=== PATIENT | female | born 1970 | race Caucasian/White ===

== ENCOUNTER 2019-02-04 09:16 | Inpatient (IN) | payer OTHER ==
[~2019-02-04] VITALS: Ht 175.3 cm; Wt 136.1 kg
[~2019-02-04 09:16] MED LIST: ADVIL200 MG PO; AMARYL4 MG PO; AMOXICILLIN500 MG PO; CALCIUM 500 +1 EAC1 PO; CELEXA20 MG PO; HYDROCODON-ACE1 EAC3 PO; LISINOPRIL20 MG PO; MAGNESIUM250 MG PO; PRILOSEC20 MG PO; VITAMIN D1000 UNIT PO; VITAMIN E; ZYRTEC10 MG PO
--- NOTE | 2019-02-07 14:09 | NUR ---
PATIENT HERE TODAY FOR PREADMISSION APPOINTMENT. SHE IS SCHEDULED TO HAVE A LEFT TOTAL KNEE ARTHROPLASTY DONE ON 02/15/19. SHE IS SCHEDULED TO ATTEND THE JOINT BOOT CAMP ON 02/10/19 AND WOULD LIKE PHYSICAL THERAPY SET UP WITH [facility] AFTER SURGERY. THE PATIENT REPORTS HAVING 1 STEP INTO THE HOME AND NO STEPS INSIDE THE HOME. THERE IS A TUB/SHOWER WITH NO HAND HELD SHOWER HEAD. SHE DOES HAVE A SHOWER BENCH. SHE WOULD LIKE CASE MANAGEMENT TO OBTAIN A WALKER FOR HER WHILE SHE IS HERE IN THE HOSPITAL. ONE OF HER DAUGHTERS WILL BE HERE TO TRANSPORT HER HOME AND SHE HAS FAMILY TO HELP HER ONCE SHE IS HOME. THIS INFORMATION WILL BE SENT TO DR NOBLE OFFICE AND CASE MANAGEMENT FOR FURTHER FOLLOW UP.
[2019-02-15] MEDS ORDERED: VITAMIN E400 UNI2 PO (08:34)
[2019-02-15] MEDS ORDERED: DAILY MULTIPLE1 EACH PO (08:35)
[2019-02-15] MEDS ORDERED: VITAMIN C100 MG PO (08:35)
[2019-02-15] MEDS ORDERED: CINNAMON500 MG PO (08:35)
[2019-02-15] MEDS ORDERED: BASAGLAR K100 UNIT/1 (08:36)
[2019-02-15] MEDS ORDERED: NOVOLOG100 UNIT/2 SUB-Q (08:37)
--- NOTE | 2019-02-15 13:41 | NUR ---
02/15/19 1341 [place] 1335 PT ARRIVED TO PACU, DRWOSY AND DENIES PAIN AND NAUSEA. PT REPORTS SHE IS UNABLE TO MOVE HER LEGS, PT EDUCATION GIVEN ON SPINAL. PLAN OF CARE DISCUSSED.
--- NOTE | 2019-02-15 14:30 | NUR ---
New admit here from surgery. Pt awake, alert and oriented x3. Pt on 2L oxygen, sat level 93%, resp even and non labored. Vital signs are stable. Left knee dressing is CDI. Ice over incision. Spinal resolving, numbness and tingling to lower ext per pt report. Bed alarm intact, knee lock on. Pt denies needs at this time. Pt due to void. Personal supplies and call light within reach. Family at bedside. CPOX intact.
--- NOTE | 2019-02-15 15:11 | NUR ---
Pt awake, alert and oriented x4. Pt's spinal resolving, she reports feeling from bilat knees to toes, cms intact. Ice intact over incision site. Dressing to left knee is CDI. Bed alarm intact. vs stable. Pt's dinner ordered at this time. Personal supplies and call light within reach. No needs. Family at bedside.
--- NOTE | 2019-02-15 16:27 | NUR ---
Pt awake, alert and oriented x3. Pt reports spinal resolved, cms intact. left knee dressing cdi. Ice over incision. Pt reports slight pain in left knee but declines pain medication at this moment. Pt remains on 2L oxygen, sat level 96%. CPOX intact. Personal supplies and call light within reach. No needs at thsi time.
--- NOTE | 2019-02-15 17:30 | NUR ---
REPORT RECEIVED FROM JESSICA ROJAS, THIS RN ASSUMING CARE OF PT. PT SITTING UP IN BED. PT REPORTS 4/10 PAIN AND REQUESTS PAIN MEDICATION (SEE MAR FOR MEDICATION GIVEN). PT REQUESTS NEW PIV. NEW PIV ATTEMPTED WITH FAILED ATTEMPT. PT TOLERATING PO FLUIDS. 2PA, FWW UP TO COMODE. PT VOIDS 200ML, CONTROLED VOID. PIV SALINE LOCKED. PT REPORTS ITCHING AND NAUSEA. SEE MAR FOR MEDICATIONS GIVEN. 2PA, FWW BACK TO BED. FOOT PUMPS AND ICE IN PLACE, DRESSING C/D/I. PT REMAINS ON 2L O2 BY NE. ICE WATER REFILLED. NO ADDITIONAL REQUESTS OR COMPLAINTS. FAMILY AT BEDSIDE. CALL LIGHT WITHIN REACH.
--- NOTE | 2019-02-15 18:43 | NUR ---
PT POST OP DAY ZERO FOR LEFT TKA. PT OUT OF BED X1 AND UP TO COMODE. CONTROLED VOID OF 200ML. PT TOELRATING PO FOOD AND FLUID. PIV SALINE LOCKED, PO FLUIDS ENCORUAGED. NAUSEA MEDICAITONS GIVEN X1. PRN DILAUDID GIVEN X1 FOR 4/10 "ACHING" PAIN. SPINAL RESOLVED. DRESSING C/D/I. CMS INTACT. COPX IN PLACE WITH O2 SATURATIONS ABOVE 92% ON 2L O2 BY NC. SCHEDULED CBGS AND SLIDING SCALE INSULIN. PT USES CALL LIGHT APPROPRIATLY.
--- NOTE | 2019-02-15 20:02 | NUR ---
RECEIVED REPORT FROM DAY SHIFT RN. PATIENT IS RESTING TIN BED VISITING WITH FAMILY. PATIENT DENIES ANY NEEDS. PATIENT RATES PAIN AT A 3/10. PATIENT DENIES ANY NEED FOR PAIN MEDICATION AT THIS TIME. CALL LIGHT IN REACH.
--- NOTE | 2019-02-15 20:50 | NUR ---
PATIENT ASSESMENT COMPLETED. PATIENT RATES PAIN AT 1/10. PATIENT DENIES THE NEED FOR PAIN MEDICATION AT THIS TIME. PATIENTS EVENING MEDICATIONS GIVEN PER ORDER. PATIENT REPOSITIONED IN BED. PATIENTS DRESSING IS C/D/I. PATIENT PROVIDED WITH FRESH ICE WATER. PATIENT PROVIDED WITH ICE PACKS X3 AND APPLIED TO LEFT KNEE. PATIENT HAS FOOT SCDS IN PLACE. PATIENT REMAINS ON 2L VIA NC. PATIENT HAS CPOX IN USE. PATIENT IS SL AND IV FLUSHES WELL. PATIENT C/O OF NAUSEA. PATIENT GIVEN PRN NAUSEA MEDICATION PER ORDER. PATIENT DENIES ANY FURTHER NEEDS. CALL LIGHT IN REACH.
--- NOTE | 2019-02-15 22:30 | NUR ---
PATIENT ASSISTED TO THE RESTROOM. PATIENT IS A 1PA W/FWW. PATIENT WAS ABLE TO VOID. PATIENT IS BACK IN BED RESTING. PATIENT HAS SCDS IN PLACE. CPOX IN USE AND PT REMAINS ON 2L VIA NC. PATIENTS SCHEDULED MEDICATIONS GIVEN PER ORDER. PATEINT DENIES ANY PAIN OR NAUSEA. NO FURTHER NEEDS NOTED. CALL LIGHT IN REACH.
--- NOTE | 2019-02-16 00:32 | NUR ---
PATIENT IS RESTING IN BED WITH EYES CLOSED, CPOX IS WNL.
--- NOTE | 2019-02-16 03:10 | NUR ---
PATIENTS SCHEDULED MEDICATIONS GIVEN PER ORDER. PATIENT RATES PAIN AT A 1/10. PATIENT ASSISTED TO THE BSC A 1PA W/FWW BY VERIFICATION REP. PATIENT TOLERATED ACTIVITY WELL. PATIENT RATED PAIN AT A 2/10 AFTER BEING UP OUT OF BED. PATIENT DENIED THE NEED FOR PAIN MEDICATION. PATIENT IS RESTING IN BED WITH SCDS IN PLACE. PATIENT DENIES ANY NEEDS. CALL LIGHT IN REACH.
--- NOTE | 2019-02-16 04:06 | NUR ---
PATIENT CALLED AND STATED THAT SHE "GOT SICK". PATIENT HAD ABOUT 200ML OF EMESIS. PATIENT DENIES BEING NAUSEA. PATIENT DENIES THE NEED FOR NAUSEA MEDICATION. PATIENT PROVIDED WITH SEVEN-UP AND CRACKERS PER REQUESTS. PATIENT DENIES ANY NEEDS. CALL LIGHT IN REACH.
--- NOTE | 2019-02-16 05:01 | NUR ---
PATIENT RESTED WELL THROUGHOUT THE SHIFT. PATIENT IS A 1[place] W[place]FWW [place] [facility] PATIENT IS ON 2L VVIA NC AHILE ASLEEP AND RA WHILE AWAKE. CPOX IN USE. PATIENT IS WORKING WITH PT. EITAN HAS GAUZE, CAST PADDING, AND MEPILEX PRESENT ON LEFT KNEE AND IS C/D/I. PATIENT HAD ICE APPLIED TO LEFT KNEE PER ORDER. PATIENT HAS FOOT SCDS IN PLACE. PATIENT RECEIVED ONLY SCHEDULED PAIN MEDICATION NO PRN. PATIENT IS SL. PATEINT IS AAOX3 AND USES CALL LIGHT APPROPRIATELY.
--- NOTE | 2019-02-16 06:08 | NUR ---
PATIENTS MORNING MEDICATIONS GIVEN PER ORDER. PATIENT ASSISTED TO THE BSC A 1PA W/FWW. PATIENT WAS ABLE TO VOID. PATIENT IS BACK IN BED RESTING WITH SCDS IN PLACE. PATIENT DENIES ANY PAIN. PATIENTS VITALS TAKEN AND RECORDED. INTAKE AND OUTPUT RECORDED. PATIENT HAD A BOUT OF EMESIS. PATIENT GIVEN PRN NAUSEA MEDICATION PER ORDER. PATIENT DENIES ANY NEEDS. CALL LIGHTIN REACH.
--- NOTE | 2019-02-16 06:23 | NUR ---
PATIENT CALLED AND NOTIFIED STAFF THAT SHE HAD MORE EMESIS AND C/O OF NAUSEA. PATIENT GIVEN PRN NAUSEA MEDICATION PER ORDER. BEDDING CHANGED. FLOOR CLEANED. PATIENT PROVIDED WITH COOL WASH RAG. NO FURTHER NEEDS NOTED. CALL LIGHT IN REACH.
--- NOTE | 2019-02-16 07:41 | NUR ---
0715: PT RESTING IN HER BED WITH NO COMPLAINTS AT THIS TIME. CALL BA WITHIN REACH. BEDSIDE REPORT RECIEVED FROM MAMIE ROJAS.
--- NOTE | 2019-02-16 07:49 | NUR ---
placed call to md with concerns of patients emesis and low end urine ouput. new verbal order received. verified order using the readback method. iv infusing per order. patient denies any pain or nausea. call light in reach.
--- NOTE | 2019-02-16 07:59 | NUR ---
PATIENT RESTING IN BED. CALL LIGHT WITHIN REACH. NO OTHER NEEDS AT THIS TIME
--- NOTE | 2019-02-16 08:04 | OR ---
[facility] [address] [place], [place] [address] Signed DATE OF OPERATION: 02/15/2019 SURGEON: Maximino Ba MD PREOPERATIVE DIAGNOSIS: End-stage osteoarthritis, left knee. POSTOPERATIVE DIAGNOSIS: End-stage osteoarthritis, left knee. PROCEDURE PERFORMED: Left total knee arthroplasty. IMPLANTS: An Attune size 6 PS femur, a size 6 tibial tray, with a 7 mm poly, and a 35 mm all-poly patellar button. ANESTHESIA: Spinal with sedation. SPECIMENS AND COMPLICATIONS: There were no specimens or complications. WHAT WAS DONE: The patient was taken to the operating room. After anesthesia was induced and airway secured, the patient was positioned, prepped and draped in a routine sterile fashion. The leg was exsanguinated with an Esmarch bandage. Pneumatic tourniquet about the thigh was inflated to 300 mmHg pressure. A straight anterior approach was made to the knee. Skin was divided sharply. Subcutaneous tissue was bluntly spread. An anteromedial flap was created and anteromedial arthrotomy performed. We then everted the patella, and trimmed about 10.5 mm off the posterior aspect of the patella. We then put the lollipop for the 35 mm poly patellar button in place and drilled the holes. We then snap-fit the trial poly patella onto the back of the kneecap and had completely restored the 25 mm height measured preresection. We removed the trial poly, slid the patella into the lateral recess and flexed the knee. Using the [employer] navigation system, we digitized the distal femur per protocol and resected the distal femur at 11 mm in neutral varus-valgus and about 3 degrees of flexion. We removed the distal femoral wafers. We then transitioned the navigation system of the proximal tibia and again following the guides and prompts, digitized the Electronically Signed By: MAXIMINO BA MD 02/16/19 0804 PATIENT NAME: LAMONTE VILLA OPERATIVE REPORT DATE OF : 68 REPORT #: [id number] PHYSICIAN: MAXIMINO BA MD PCP: ELSA CORTEZ MD REPORT IS CONFIDENTIAL AND NOT TO BE RELEASED WITHOUT AUTHORIZATION [facility] [address] [place], [place] [address] Signed proximal tibia. The proximal tibia was then resected 5 mm off the medial side in neutral varus-valgus and in 3 degrees of posterior slope per the [facility] surgical protocol. We then removed the tibial wafer along with remnants of the ACL, PCL, and menisci. We put the knee in full extension and actually found we could put a [address] in [address] with good balance and good position. We then flexed the knee, placed the distal femoral sizer on the distal femur and it sized to a size 6. We placed the drill guide holes in 3 degrees of external rotation and attached the size 6 femoral resection block. Anterior, posterior and chamfer cuts were made and all the marginal bone was removed. We then put the notch cutting block in place and cut out the notch. We placed the trial femur on the distal femur and drilled the lug holes. We then placed a size 5 tibial tray on the distal tibia with a 6 mm poly. We had full extension, excellent stability with good range of motion. We therefore marked rotation of the tibial component, flexed the knee, removed all the trials and prepared the tibia with a standard reamer and broach. We then meticulously irrigated and dried all the bony surfaces. We could see a size 6 tibial tray without any overhang, so we up-sized the tibia to a size 6. We then mixed a double batch of cement and cemented the components in place. Marginal cementophytes were removed and we placed a [address] and held the knee in full extension while the cement cured. After the cement had cured, the knee was flexed and marginal cement was removed. We re-trialed the knee with a 7 poly and found that we had excellent extension with a good varus-valgus stability and flexion-extension, mid range. Knee was copiously irrigated. The final poly was snapped into place. Routine wound closure was accomplished. The patient was awakened and taken to the recovery room where she arrived in stable condition. Counts were correct and antibiotic protocols were followed. Maximino Ba MD WFB/MODL /[id number] Copies: ~ Electronically Signed By: MAXIMINO BA MD 02/16/19 0804 PATIENT NAME: LAMONTE VILLA OPERATIVE REPORT DATE OF : 68 REPORT #: [id number] PHYSICIAN: MAXIMINO BA MD PCP: ELSA CORTEZ MD REPORT IS CONFIDENTIAL AND NOT TO BE RELEASED WITHOUT AUTHORIZATION
--- NOTE | 2019-02-16 08:44 | NUR ---
SAT WAS 98% ON 2L, RT REMOVED THE PT'S O2. SAT ON 92% ON ROOM AIR. PT HAD SOME NAUSEA, WILL TREAT, SEE EMAR. PT STATES SHE HAS A LITTLE PAIN BUT IT IS AT AN ACCEPTABLE LEVEL.
--- NOTE | 2019-02-16 08:47 | NUR ---
PT STATES HER NAUSEA IS DECREASING AND SHE IS NOT ANY LONGER IN THE NEED OF ANY MEDICATIONS.
--- NOTE | 2019-02-16 09:48 | NUR ---
PATIENT RESTING IN BED. VISITORS IN ROOM. VITAL SIGNS AND I&O DONE. LOW BLOOD PRESSURE. RN NOTIFIED. CALL LIGHT WITHIN REACH. NO OTHER NEEDS AT THIS TIME
--- NOTE | 2019-02-16 10:05 | NUR ---
CALL LIGHT ANSWERED. PATIENT SAYS SHE HAS PAIN ON HER LEG. RN NOTIFIED.
--- NOTE | 2019-02-16 10:19 | NUR ---
PT STATES SHE HAS SOME PAIN BUT THAT IT IS ACCEPTABLE AT THIS TIME. SHE HAD SOME N/V AFTER EATING A SMALL AMOUT OF FOOD. PT MEDICATED ORDERED, SEE EMAR.
--- NOTE | 2019-02-16 10:49 | NUR ---
PT STATES HER NAUESA IS MUCH IMPROVED AT THIS TIME.
--- NOTE | 2019-02-16 11:07 | NUR ---
SENT A REQUEST TO [facility]-HOME [facility] FOR A WALKER, SENT ALL REQUIRED RECORDS. INFORMATION IN CHART. SENT 02/16/19 @ 11:08
--- NOTE | 2019-02-16 12:13 | NUR ---
PT STATES SHE IS HAVING SOME NAUSEA AGAIN AND WAS MEDICATED ORDERED.
--- NOTE | 2019-02-16 12:43 | NUR ---
PT RESTING IN HER BED AND SHE STATES HER NAUSA HAS IMPROVED. THE SCD MACHINE HAD STOPPED WORKING AND HAS BEEN REPLACED WITH ANOTHER MACHINE AT THIS TIME. SAT IS 92% ON RA AT THIS TIME.
--- NOTE | 2019-02-16 12:49 | NUR ---
THE PT STATES HER NAUSEA IS UNDER CONTROL AND THIS TIME AND SHE STATES SHE WILL WALK WITH PHYSICAL THERAPY AT THIS TIME. I NOTIFIED PHYSICAL THERAPY THAT THE PT IS FEELING BETTER AND WILL WALK WITH HER AT THIS TIME.
--- NOTE | 2019-02-16 13:52 | NUR ---
Pt resting in her bed, scd's on and running. Sat 92% on room air. Pt denies any pain or nausea at this time.
--- NOTE | 2019-02-16 14:02 | NUR ---
Pt helped to the commode at this time as she has not voided since this am.
--- NOTE | 2019-02-16 14:05 | NUR ---
PATIENT RESTING IN BED. RN IN ROOM. VITAL SIGNS AND I&O DONE. PATIENT DID NOT VOID DURING THIS PERIOD AND SYSTOLIC BLOOD PRESSURE IS LOW. RN NOTIFIED. PATIENT IS ENCOURAGED TO USE BASE COMMODE. PATIENT USES BASE COMMODE. PATIENT USES A WALKER. ONE PERSON ASSISTING. CALL LIGHT WITHIN REACH. NO OTHER NEEDS AT THIS TIME
--- NOTE | 2019-02-16 14:11 | NUR ---
Dr Hoffman notified of the pt's poor urine output and of her BP. New orders given. Iv rate increased at this time.
--- NOTE | 2019-02-16 14:31 | NUR ---
Pt working with physical therapy and walking in the halls.
--- NOTE | 2019-02-16 14:35 | NUR ---
PATIENT AMBULATING IN THE HALLWAY WITH PHYSICAL THERAPIST.
--- NOTE | 2019-02-16 15:02 | NUR ---
Pt resting in her bed and continues to denie pain after walking in the halls with Physical therapy and no nausea.
--- NOTE | 2019-02-16 15:11 | NUR ---
Pt had another bout of n/v for 300 cc. She denies any nausea at this time and declines medications at this time.
--- NOTE | 2019-02-16 15:38 | NUR ---
Dr Hoffman notified of the pt's nausea and vomiting, new orders given. See Emar.
--- NOTE | 2019-02-16 15:40 | NUR ---
[facility] CALLED, FREYA STATES SHE TALKED WITH PATIENT AND HER MOTHER. PATIENTS DEDUCTIBLE HAS NOT BEEN MET AND WALKER JENNINGS WAS $134 OUT OF POCKET. THEY HAVE OPTED TO BORROW ONE FROM A FRIEND. STAFF UPDATED.
--- NOTE | 2019-02-16 16:49 | NUR ---
UPON HEARING THE PT'S PULSE OX ALARM I ENTERED HER ROOM. HER SAT WAS 84%, SHE WAS AWOKEN AND O2 PLACED AT 2L AND HER SAT INCREASED TO 95%. PT DENIES ANY NAUSEA AND QUICKLY FELL BACK TO SLEEP.
--- NOTE | 2019-02-16 17:16 | NUR ---
PATIENT RESTING IN BED. VITAL SIGNS AND I&O DONE. LOW DYASTOLIC BLOOD PRESSURE. RN NOTIFIED. CALL LIGHT WITHIN REACH. NO OTHER NEEDS AT THIS TIME
--- NOTE | 2019-02-16 17:51 | NUR ---
PT'S SAT IS 99% ON ROOM AIR AT THIS TIME. SHE WAS INFORMED THAT SHE CAN TAKE IT OFF WHILE AWAKE. PT ATE 100% OF HER MEAL AND CONTINUES TO DENIE ANY NAUSEA AT THIS TIME. PT STATES HER PAIN IS A 3/10 WHICH IS ACCEPTABLE TO HER.
--- NOTE | 2019-02-16 18:47 | NUR ---
BLADDER SCANNED FOR 138ML, NOTIFIED
--- NOTE | 2019-02-16 19:00 | NUR ---
RECIEVED REPORT FROM BOB MARTINEZ. pt SITTING IN CHAIR VISITING WITH FAMILY. DENIES NAUSEA AT THIS TIME, RATED PAIN 2/10. WHITEBOARD UPDATED. CALL LIGHT WITHIN REACH.
--- NOTE | 2019-02-16 19:22 | NUR ---
CHARGE NURSE REPORT RECEIVED. PT UP IN CHAIR, VISITING, DENIES NEEDS AT THIS TIME.
--- NOTE | 2019-02-16 21:05 | NUR ---
VITALS AND I&OS DONE AND CHARTED. ICE WATER AND ICE TEA FILLED. BEDSIDE TABLE AND CALL LIGHT IN REACH.
--- NOTE | 2019-02-16 21:05 | NUR ---
IN TO TAKE BLOOD SUGAR, WITHIN RANGE. DISCUSSED MEDICATIONS. pt INFORMED THIS RN THAT SHE HAD A REACTION TO HUMALOG IN THE PAST AND ONLY USES NOVALOG. MESSAGE TO MD. PUT ADVERSE REACTION INTO CHART.
--- NOTE | 2019-02-16 21:36 | NUR ---
ASSESSMENT DONE. DRESSING CDI. RATED PAIN 11/24. SCHEDULED MEDICATIONS GIVEN (SEE MAR). O2 ON FOR SLEEPING, CPOX IN PLACE. CALL LIGHT WITHIN REACH. TEA AND WATER PROVIDED.
--- NOTE | 2019-02-16 23:33 | NUR ---
ROUNDED ON pt. RESTING WITH EYES CLOSED, RESPIRATIONS REGULAR AND UNLABORED. RATE = 20. CALL LIGHT WITHIN REACH.
--- NOTE | 2019-02-17 01:08 | NUR ---
CALL LIGHT ON. PRN PAIN MED GIVEN FOR 6 PAIN (SEE MAR). ASSISTED pt UP TO BSC, 1PA FWW. VOIDED. BACK TO BED. COVERS REARRANGED. NO REQUESTS AT THIS TIME. CALL LIGHT WITHIN REACH.
--- NOTE | 2019-02-17 02:31 | NUR ---
FOOT PUMPS BEEPING. TROUBLESHOOTING DONE. pt REPORTED "DISCOMFORT", REFUSED PAIN MEDICATION AT THIS TIME. WILL CALL WHEN READY. CALL LIGHT WITHIN REACH.
--- NOTE | 2019-02-17 04:19 | NUR ---
ROUNDED ON pt. RESTING WITH EYES CLOSED, RESPIRATIONS REGULAR AND UNLABORED. RATE = 18. CALL LIGHT WITHIN REACH.
--- NOTE | 2019-02-17 05:13 | NUR ---
pt RESTED ON AND OFF DURING SHIFT. PRN PAIN MEDS X2 & SCHEDULED PAIN MEDS. URINE OUTPUT INCREASED FROM DAYSHIFT. pt DENIED NAUSEA. 1PA FWW. ON 2L O2 VIA NC WHILE SLEEPING, RA WHILE AWAKE. DRESSING CDI. IVF INFUSING. USES CALL LIGHT APPROPRIATELY.
--- NOTE | 2019-02-17 07:00 | NUR ---
REPORT RECEIVED FROM BOB WELLS. PT RESTING IN BED AND REPORTS 3/10 PAIN THAT "IS GETTING WORSE." PT DENIES NASUEA AT THIS TIME. DRESSING C/D/I. NO ADDITIONAL REQUESTS OR COMPLAINTS AT THIS TIME. PT REPORTS HER DAUGHTER IS PLANNING TO BRING IN HER HOME INSULIN "LATER THIS MORNING."
[2019-02-17] MEDS ORDERED: ROPINIROLE HCL0.5 MG PO (07:13)
[2019-02-17] MEDS ORDERED: DICLOFENAC SODI75 MG PO (07:13)
[2019-02-17] MEDS ORDERED: HYDROCHLOROTHIA25 MG PO (07:13)
[2019-02-17] MEDS ORDERED: AMLODIPINE BESYL5 MG PO (07:14)
[2019-02-17] MEDS ORDERED: PRAVASTATIN SOD10 MG PO (07:14)
[2019-02-17] MEDS ORDERED: TOPIRAMATE50 MG PO (07:15)
[2019-02-17] MEDS ORDERED: CITALOPRAM HBR40 MG PO (07:16)
--- NOTE | 2019-02-17 07:39 | NUR ---
MORNING ASSESSMENT AND MEDICATIONS DUE. PT RESTING IN BED NOW REPORTING 4/10 PAIN IN LEFT KNEE. SEE MAR FOR MEDICATION GIVEN. PT DENIES NASUEA STATING "NONE SINCE YESTERDAY AFTERNOON." CBG TAKEN = 219, LANTUS GIVEN, LISPRO HELD BASED ON N/V ALLERGY, AWAITING MD ORDERS. ASSESSMENT DONE. DRESSING C/D/I, CMS INTACT. 1PA, FWW UP TO CHAIR. PT DEMONSTRATES USE OF I.S. REACHING 2500. MEDICATION GIVEN. PT REPORTS TOLERATING PO FOOD AND FLUID WELL "SINCE YESTERDAY." FRESH ICE PACK PROVIDED. HOT TEA PROVIDED. NO ADDITIONAL REQUESTS OR COMPLAINTS AT THIS TIME. CALL LIGHT WITHIN REACH.
[2019-02-17] MEDS ORDERED: OXYCODONE HCL10 MG PO (09:09)
[2019-02-17] MEDS ORDERED: ONDANSETRON ODT4 MG PO (09:11)
[2019-02-17] MEDS ORDERED: XARELTO10 MG PO (09:12)
[2019-02-17] MEDS ORDERED: ULTRAM50 MG PO (09:12)
--- NOTE | 2019-02-17 09:26 | NUR ---
NEW INSULIN ORDERS IN PLACE. GIVEN ORDRED AND PER CBG RESULTS (SEE MAR). PT UP TO RESTROOM TO VOID. 1PA, FWW. PT REORS 10/24 PAIN THAT "IS GETTING BETTER." PIV SALINE LOCKED AT THIS TIME FOR PHYSICAL THERAPY PT IS VOIDING LARGE AMOUNTS AND TOLERATING PO FLUIDS. NO ADDITIONAL REQUESTS OR COMPLAINTS. CALL LIGHT WITHIN REACH.
[2019-02-17] MEDS ORDERED: NOVOLOG100 UNIT/2 SUB-Q (09:59)
--- NOTE | 2019-02-17 10:12 | NUR ---
DISCHARGE INSTRUCTIONS REVIEWED WITH PT. PT VERBALIZES UNDERSTANDING AND STATES HER QUESTIONS HAVE BEEN ANSWERED. PT STATES HER PHYSICAL THERAPY APPOINTMENTS HAVE ALREADY BEEN MADE. PT PLANNING TO WORK WITH PHYSICAL THERAPY THIS MORNING BEFORE DISCHARGE. PT AWAITING PHYSICAL THERAPIST AND PHARMACIST. PT PLANS TO SHOWER AFTER PHYSICAL THERAPY BEFORE DISCHRAGE. NO ADDITIONAL REQUESTS OR COMPLAINTS AT THIS TIME. CALL LIGHT WITHIN REACH.
--- NOTE | 2019-02-17 10:22 | NUR ---
MED REC COMPLETE
--- NOTE | 2019-02-17 12:27 | NUR ---
PT CALL LIGHT ON. 1PA FWW UP TO RESTROOM AND SHOWER. CBG = 188. PT PLANS TO EAT SNACK AND RECEIVE INSULIN AFTER SHOWER. C++ QUANT DEVELOPER AT BEDSIDE. NO ADDITIONAL REQUESTS OR COMPLAINTS AT THIS TIME. PT DEMONSTRATES USE OF CALL LIGHT.
--- NOTE | 2019-02-17 13:18 | NUR ---
PT FINISHED WITH SHOWER AND EATING SNACK. PT REPORTS 4/10 PAIN AFTER SHOWER, SEE MAR FOR MEDICATION GIVEN. PT AWIAITING DAUGHTER AND IS OTHERWISE DRESSED AND READY FOR DISCHRAGE. PT STATES SHE HAS NO ADDITIONAL QUESTIONS OR CONCERNS. CALL LIGHT WITHIN REACH.
--- NOTE | 2019-02-17 13:28 | NUR ---
PTS DAUGHTER ARRIVED. 1PA, FWW TRANSFER TO WHEELCHAIR. PT WHEELED FROM UNIT BY EDWIN WAGGONER. NO REQUESTS OR COMPLAINTS.
--- NOTE | 2019-02-17 15:29 | NUR ---
HELPED PATIENT WITH HER SHOWER AROUND 1230 I WASHED HER BACK AND HER FEET AND LEGS. ALSO DRIED OFF HER BACK AND PUT LOTION ON HER BACK. HELPED HER PUT ON HER UNDERWEAR AND SHORTS.
--- NOTE | 2019-02-18 08:52 | DS ---
[facility] [address] [place], [place] [address] Signed ADMISSION DATE: 02/15/2019 DISCHARGE DATE: 02/17/2019 Final diagnosis time discharge is osteoarthritis, left knee, end-stage. The patient also has diabetes. HISTORY OF PRESENT ILLNESS: The patient is a 48-year-old female with severe osteoarthritis in both knees. She no longer gets any relief with conservative modalities and presents for elective total knee arthroplasty on the left. HOSPITAL COURSE: The patient was admitted to Day Surgery on 02/15/2019. She was taken to the operating room where under spinal anesthesia she underwent a left total knee arthroplasty using the [employer] PS system. Postoperatively, she has done well. Her pain has been well controlled with oxycodone. She did have some nausea for the first day, but that has resolved. At the present time, her pain is well controlled with occasional oxycodone. She has passed all of her physical therapy goals. Her incision is clean and dry. She is being discharged home today on oxycodone 10 mg, one every 4 hours as needed for pain and tramadol 50 mg to 100 mg every 6 hours as needed for pain. We will also continue her on Zofran ODT in case she develops any residual nausea, and we will keep her on Xarelto 10 mg one once a day for DVT prophylaxis. She already has physical therapy set up starting next week. Her dressing was taken down to the Dermabond. It is clean and dry, and she should need any additional dressings. We will encourage her to be as active as possible. She can follow a general diet and will follow up with us in 6 weeks. MD KAILA Colmenares/LURDES /[id number] Electronically Signed By: MAXIMINO BA MD 02/18/19 0852 PATIENT NAME: LAMONTE VILLA DISCHARGE SUMMARY DATE OF : 68 REPORT #: [id number] PHYSICIAN: MAXIMINO BA MD PCP: ELSA CORTEZ MD REPORT IS CONFIDENTIAL AND NOT TO BE RELEASED WITHOUT AUTHORIZATION [address] [address] Signed Copies: ~ Electronically Signed By: MAXIMINO BA MD 02/18/19 0852 PATIENT NAME: LAMONTE VILLA DISCHARGE SUMMARY DATE OF : 68 REPORT #: [id number] PHYSICIAN: MAXIMINO BA MD PCP: ELSA CORTEZ MD REPORT IS CONFIDENTIAL AND NOT TO BE RELEASED WITHOUT AUTHORIZATION
== END 2019-02-17 13:30 | disposition home or self-care (01) | DRG 470 ==
LOC: MS 02-15 06:45 → DSVR 02-15 07:55 → MS 02-15 07:55
PROVIDERS: ADMIT Orthopaedic Surgery
PROC: 8E0YXBZ Computer Assisted Procedure of Lower Extremity (ICD-10-PCS; 2019-02-15)
PROC: 0SRD0J9 Replacement of Left Knee Joint with Synthetic Substitute, Cemented, Open Approach (ICD-10-PCS; principal; 2019-02-15 11:15)
DX: M17.0 Bilateral primary osteoarthritis of knee (principal); N17.9 Acute kidney failure, unspecified; Z68.41 Body mass index [BMI] 40.0-44.9, adult; I10 Essential (primary) hypertension; E11.9 Type 2 diabetes mellitus without complications; K21.9 Gastro-esophageal reflux disease without esophagitis; G44.89 Other headache syndrome; F41.8 Other specified anxiety disorders; E78.5 Hyperlipidemia, unspecified; E66.01 Morbid (severe) obesity due to excess calories; G25.81 Restless legs syndrome; R11.2 Nausea with vomiting, unspecified; Z88.8 Allergy status to other drugs, medicaments and biological substances; Z79.4 Long term (current) use of insulin; Z79.899 Other long term (current) drug therapy; Z88.5 Allergy status to narcotic agent
CPT/HCPCS: 36415; 73560; 80048; 85025; 94760; 94762; 97110; 97116; 97162; C1713; C1776; J0690; J1100; J1170; J1200; J1815; J1885; J2060; J2250; J2274; J2405; J2550; J2704; J2765; J2795; J3010; J7120

== ENCOUNTER 2021-12-01 18:21 | Emergency (ER) | payer OTHER ==
[~2021-12-01] VITALS: Ht 175.3 cm; Wt 136.1 kg
[~2021-12-01 18:21] MED LIST changes: +AMLODIPINE BESYL5 MG PO; +BASAGLAR K100 UNIT/1; +CINNAMON500 MG PO; +CITALOPRAM HBR40 MG PO; +DAILY MULTIPLE1 EACH PO; +DICLOFENAC SODI75 MG PO; +HYDROCHLOROTHIA25 MG PO; +NOVOLOG100 UNIT/2 SUB-Q; +ONDANSETRON ODT4 MG PO; +OXYCODONE HCL10 MG PO; +PRAVASTATIN SOD10 MG PO; +ROPINIROLE HCL0.5 MG PO; +TOPIRAMATE50 MG PO; +ULTRAM50 MG PO; +VITAMIN C100 MG PO; +VITAMIN E400 UNI2 PO; +XARELTO10 MG PO
--- OUTSIDE RECORDS SUMMARY | 2021-12-01 18:24 | XMS ---
PreManage Notification: LAMONTE VILLA Security Commercial Appraiser Events No recent Security Events currently on file [facility] - [facility] PROVIDERS There are no care providers on record at this time. Xu has no Care Guidelines for this patient. Rochelle VISIT COUNT (12 MO.) 1 ANDRA Alston TOTAL 1 NOTE: Visits indicate total known visits. ED/UCC VISIT TRACKING (12 MO.) 12/01/2021 18:21 ANDRA Palacio [place] TYPE: Emergency COMPLAINT: - STOMACH ABCESS INPATIENT VISIT TRACKING (12 MO.) No inpatient visits to display in this time frame [email or web address]
[2021-12-01] MEDS ORDERED: FENOFIBRATE160 MG PO (18:54)
[2021-12-01] MEDS ORDERED: MOBIC15 MG PO (18:55)
[2021-12-01] MEDS ORDERED: LIPITOR40 MG PO (18:55)
[2021-12-01] MEDS ORDERED: JARDIANCE10 MG PO (18:55)
[2021-12-01] MEDS ORDERED: CLEOCIN HCL300 MG PO (21:33)
[2021-12-01] MEDS ORDERED: BACTRIM DS TAB1 EACH PO (21:33)
[2021-12-01] MEDS ORDERED: HIBICLENS118 ML TOP (22:54)
[2021-12-01] MEDS ORDERED: HYDROCODON-ACE1 EA10 PO (22:54)
== END 2021-12-01 23:05 | disposition home or self-care (01) ==
LOC: ED 18:21
DX: L02.211 Cutaneous abscess of abdominal wall (principal); E11.9 Type 2 diabetes mellitus without complications; I10 Essential (primary) hypertension; Z88.8 Allergy status to other drugs, medicaments and biological substances; Z79.899 Other long term (current) drug therapy; Z79.4 Long term (current) use of insulin
CPT/HCPCS: 36415; 74177; 80053; 83605; 85025; 99284-25; A9270; J3370; Q9967